=== PATIENT | male | born 1965 | race African-American/Black ===

== ENCOUNTER 2019-02-17 23:03 | Emergency (ER) | payer SELFPAY ==
[~2019-02-17] VITALS: Ht 188 cm; Wt 100.0 kg
[2019-02-18] MEDS ORDERED: SODIUM CHLORIDE 0.9% 1,000 ML IV ONE (00:55)
[2019-02-18] MEDS ORDERED: CYCLOBENZAPRINE 10MG TABLET PO ONE (01:00)
[2019-02-18] MEDS ORDERED: ACETAMINOPHEN 650MG/20.3ML UDC PO ONE (01:00)
[2019-02-18 04:52] VITALS: BP 107/66
== END 2019-02-18 04:53 | disposition home or self-care (01) ==
LOC: ER 23:03
DX: M79.18 Myalgia, other site (principal)
CPT/HCPCS: 70450; 71250; 72125; 73562; 73610; 74176; 99284; J7030